=== PATIENT | male | born 1975 | race Caucasian/White ===

== ENCOUNTER 2023-10-31 22:30 | Observation (INO) | payer OTHER ==
[2023-10-31 22:54] VITALS: BMI 29.1
[2023-11-01 00:44] LABS: HEMATOCRIT 43.5 % (35.4-49); HEMOGLOBIN 14.4 GM/dL (11.7-16.9); LYMPH % 6.3 % (8-40); MCH 29.3 pg (25.7-33.7); MCHC 33.2 g/dl (32.0-35.9); MEAN CELL VOLUME 88.3 fl (80-96); MEAN PLT VOLUME 8.3 fl (7.5-11.1); NEUT % 86.9 % (42.8-82.8); PLATELET COUNT 305 10^3/uL (134-434); RBC 4.93 M/mm3 (4.00-5.60); RDW 15.3 % (11.9-15.9)
[2023-11-01 00:45] LABS: BASO % 0.2 % (0-2.0); EOS % 0.2 % (0-4.5); MONO % 6.4 % (3.8-10.2)
[2023-11-01 01:05] LABS: POTASSIUM 4.4 mmol/L (3.5-5.1)
[2023-11-01 01:07] LABS: CALCIUM 8.8 mg/dL (8.5-10.1)
[2023-11-01 01:08] LABS: ALBUMIN 3.3 g/dl (3.4-5.0); BLOOD UREA NITROGEN 16.4 mg/dL (7-18)
[2023-11-01 01:11] LABS: CREATININE 1.3 mg/dL (0.55-1.3)
[2023-11-01 01:12] LABS: TOT PROT 6.7 g/dl (6.4-8.2)
[2023-11-01 01:13] LABS: BILIRUBIN,TOTAL 0.6 mg/dL (0.2-1)
[2023-11-01] MEDS ORDERED: FAMOTIDINE 20 MG/50 ML IVPB 20 MG/50 ML MG IVPB ONE (01:47)
[2023-11-01] MEDS ORDERED: MAG HYDROX/AL HYDROX/SIMETH 30 ML UNIT-DOSE CUP ONE (01:47)
[2023-11-01] MEDS: SODIUM CHLORIDE 0.9% 500 ML INFUS.BAG IV ONE (01:50)
[2023-11-01] MEDS: FAMOTIDINE 20 MG/50 ML IVPB 20 MG/50 ML MG IVPB ONE (01:50)
[2023-11-01] MEDS: MAG HYDROX/AL HYDROX/SIMETH 30 ML UNIT-DOSE CUP PO ONE (01:50)
[2023-11-01] MEDS: AMPICILLIN NA/SULBACTAM NA 3 GM in SODIUM CHLORIDE 100 ML IVPB ONE (02:14)
[2023-11-01] MEDS ORDERED: DOCUSATE SODIUM 100 MG CAPSULE (FP) PO PRN (03:00)
[2023-11-01 06:12] LABS: URINE APPEARANCE CLEAR; URINE BILIRUBIN NEGATIVE (NEGATIVE); URINE COLOR YELLOW; URINE GLUCOSE (UA) NEGATIVE (NEGATIVE); URINE KETONE NEGATIVE (NEGATIVE); URINE LEUK ESTERASE NEGATIVE (NEGATIVE); URINE NITRITE NEGATIVE (NEGATIVE); URINE PROTEIN NEGATIVE (NEGATIVE); URINE UROBILINOGEN 0.2 mg/dL (0.2-1.0)
[2023-11-01 07:02] LABS: BASO % 0.8 % (0-2.0); EOS % 1.4 % (0-4.5); HEMATOCRIT 42.3 % (35.4-49); HEMOGLOBIN 13.9 GM/dL (11.7-16.9); LYMPH % 13.8 % (8-40); MCH 29.4 pg (25.7-33.7); MCHC 32.9 g/dl (32.0-35.9); MEAN CELL VOLUME 89.4 fl (80-96); MEAN PLT VOLUME 8.3 fl (7.5-11.1); MONO % 6.2 % (3.8-10.2); NEUT % 77.8 % (42.8-82.8); PLATELET COUNT 263 10^3/uL (134-434); RBC 4.73 M/mm3 (4.00-5.60); RDW 14.7 % (11.9-15.9); WHITE BLOOD COUNT 13.6 K/mm3 (4.0-10.0)
[2023-11-01 07:11] LABS: POTASSIUM 4.1 mmol/L (3.5-5.1)
[2023-11-01 07:17] LABS: BLOOD UREA NITROGEN 13.7 mg/dL (7-18); CALCIUM 8.1 mg/dL (8.5-10.1)
[2023-11-01 07:21] LABS: CREATININE 1.1 mg/dL (0.55-1.3)
[2023-11-01] MEDS ORDERED: AMPICILLIN NA/SULBACTAM NA 3 GM/100 ML BAG IVPB ONE ×3 (08:26→21:13)
[2023-11-01] MEDS: SODIUM CHLORIDE 1,000 ML IV SCH (08:57)
[2023-11-01] MEDS: AMPICILLIN NA/SULBACTAM NA 3 GM in SODIUM CHLORIDE 100 ML IVPB SCH (08:57)
[2023-11-01] MEDS ORDERED: oxyCODONE HCL 5 MG TABLET ONE (19:07)
[2023-11-01] MEDS: oxyCODONE HCL 5 MG TABLET PO PRN (19:19)
[2023-11-01] MEDS ORDERED: MELATONIN 5 MG TABLETS PO PRN (21:42)
[2023-11-01] MEDS ORDERED: ACETAMINOPHEN INJECTION 100 ML IVPB ONE (21:58)
[2023-11-01] MEDS: ACETAMINOPHEN 1000 MG/100 ML BAG IVPB ONE (22:04)
[2023-11-02] MEDS ORDERED: AMPICILLIN NA/SULBACTAM NA 3 GM/100 ML BAG IVPB ONE ×2 (03:03→09:34)
[2023-11-02] MEDS ORDERED: oxyCODONE HCL 5 MG TABLET ONE ×2 (03:18→09:37)
[2023-11-02 07:34] LABS: EOS % 5.9 % (0-4.5); HEMATOCRIT 43.3 % (35.4-49); HEMOGLOBIN 14.1 GM/dL (11.7-16.9); LYMPH % 19.5 % (8-40); MCH 29.3 pg (25.7-33.7); MCHC 32.6 g/dl (32.0-35.9); MEAN CELL VOLUME 89.9 fl (80-96); MEAN PLT VOLUME 9.2 fl (7.5-11.1); MONO % 9.7 % (3.8-10.2); NEUT % 63.9 % (42.8-82.8); PLATELET COUNT 275 10^3/uL (134-434); RBC 4.82 M/mm3 (4.00-5.60); RDW 14.9 % (11.9-15.9); WHITE BLOOD COUNT 6.9 K/mm3 (4.0-10.0)
[2023-11-02 08:43] VITALS: RESP 20; TEMP 98
[2023-11-02] MEDS ORDERED: FAMOTIDINE 20 MG TABLET ONE (09:34)
[2023-11-02] MEDS: FAMOTIDINE 10 MG TABLET PO ONE (09:40)
[2023-11-02 13:52] VITALS: BP 135/89; PULSE 93
[2023-11-03] MEDS ORDERED: levETIRAcetam 500 MG/5 ML INJECTION VIAL IVPB ONE (08:19)
== END 2023-11-02 13:55 | disposition home or self-care (01) ==
LOC: JER 22:30 → JERBED 11-01 01:37
PROVIDERS: ADMIT Internal Medicine; ATTEND Internal Medicine
CPT/HCPCS: 0241U-QW; 36415; 71045-TC-FY; 80048; 80053; 81003; 82550; 82553; 84484; 85025; 87040; 87086; 93005; 93010; 99285-25; G0378; J0131